=== PATIENT | female | born 1975 | race Caucasian/White ===

== ENCOUNTER → 2019-07-27 | Outpatient (CLI) | payer BC ==
[2015-12-12 20:17] VITALS: BP 132/86
[~2019-07-27] MED LIST: PRED50TA PO
--- NOTE | 2019-07-27 08:17 | RAD ---
EXAM: Obstetrics sonogram. HISTORY: Advanced maternal age. TECHNIQUE: Sonographic imaging of a gravid uterus was performed. COMPARISON: None. FINDINGS: The uterus measures 13.4 x 7.7 x 5.7 cm. There is a single intrauterine gestational sac with pole and yolk sac. The crown-rump length is 2.4 cm, corresponding with a gestational age of 9 weeks and 1 day. The heart rate is normal at 175 bpm. The gestational sac is normal in configuration and location. The ovaries are unremarkable. The cervix is long and closed. IMPRESSION: Single intrauterine fetus with normal heart rate and an estimated gestational age of 9 weeks and 1 day. Electronically signed by: Meghan Burroughs MD (07/27/2019 8:14 AM) [id number]
== END | disposition home or self-care (01) ==
LOC: US 06:57
PROVIDERS: ATTEND Obstetrics & Gynecology
DX: Z34.91 Encounter for supervision of normal pregnancy, unspecified, first trimester (principal); Z3A.09 9 weeks gestation of pregnancy
CPT/HCPCS: 76801

== ENCOUNTER → 2019-11-08 | Outpatient (CLI) | payer BC ==
[2015-12-12 20:17] VITALS: BP 132/86
--- NOTE | 2019-11-08 16:59 | RAD ---
Examination: PREG MORE THAN OR EQ TO 14 WKS History: Reason: Encounter for Second Trimester / Spl. Instructions: / History: Comparison/Correlation: 07/27/2019 1st trimester OB ultrasound Findings: OB ultrasound exam was performed. Single living intrauterine gestation is present with heart rate of 135 bpm. Placenta is at the anterior uterine wall. No evidence of previa. anatomy identified include a four-chamber heart, three-vessel cord and its insertion, fluid noted in the uterine bladder, stomach, kidneys, spine, brain are visualized. Cephalic lie noted. Maternal cervical length of 5.4 cm evident. Amniotic fluid index is 12.6. Biparietal diameter is 5.3 cm corresponding to 23 weeks 1 day. Head circumference 21.12 cm corresponding to 23 weeks 1 day. Abdominal circumference is 19.3 cm corresponding to 24 weeks 0 day. Femur length 4.34 cm corresponding 24 weeks 2 days. Estimated weight is 648 g. Average ultrasound age is 23 weeks 5 days. Ultrasound EDC is 02/27/2020. Impression: Single living intrauterine gestation with average ultrasound age of 23 weeks 5 days. Adequate interval growth is noted since prior exam. No suspicious findings. Electronically signed by: Aristides Jordan MD (11/08/2019 4:55 PM) [id number]
== END | disposition home or self-care (01) ==
LOC: US 13:55
PROVIDERS: ATTEND Obstetrics & Gynecology
DX: Z34.92 Encounter for supervision of normal pregnancy, unspecified, second trimester (principal); Z3A.23 23 weeks gestation of pregnancy
CPT/HCPCS: 76805

== ENCOUNTER → 2019-11-24 | Outpatient (CLI) | payer BC ==
[2015-12-12 20:17] VITALS: BP 132/86
[2019-11-24 12:03] LABS: HEMATOCRIT 33.2 % (36.0-47.0); HEMOGLOBIN 11.7 g/dL (12.0-15.5); RED BLOOD COUNT 3.8 x10^6/uL (3.50-5.40); RED CELL DISTRIBUTION WIDTH 13.9 % (11.5-14.5); WHITE BLOOD COUNT 8.6 x10^3/uL (4.0-11.0)
== END | disposition home or self-care (01) ==
LOC: LAB 10:00
PROVIDERS: ATTEND Obstetrics & Gynecology
DX: O09.93 Supervision of high risk pregnancy, unspecified, third trimester (principal); Z3A.00 Weeks of gestation of pregnancy not specified
CPT/HCPCS: 36415; 82950; 85027

== ENCOUNTER → 2019-12-01 | Outpatient (CLI) | payer BC ==
[2015-12-12 20:17] VITALS: BP 132/86
== END | disposition home or self-care (01) ==
LOC: LAB 07:53
PROVIDERS: ATTEND Obstetrics & Gynecology
DX: Z34.93 Encounter for supervision of normal pregnancy, unspecified, third trimester (principal)
CPT/HCPCS: 36415; 82947; 82950

== ENCOUNTER → 2020-02-20 | Outpatient (CLI) | payer BC ==
[2015-12-12 20:17] VITALS: BP 132/86
[~2020-02-20] MED LIST changes: +DOCU-109 PO; +IBUP-1060 PO
== END ==
LOC: LAB 11:59
PROVIDERS: ATTEND Obstetrics & Gynecology
DX: Z01.812 Encounter for preprocedural laboratory examination (principal); Z20.828 Contact with and (suspected) exposure to other viral communicable diseases
CPT/HCPCS: U0003-CS

== ENCOUNTER 2020-02-23 05:59 | Inpatient (IN) | payer BC ==
[~2020-02-23] VITALS: Ht 170.2 cm; Wt 95.3 kg
[~2020-02-23 05:59] MED LIST changes: -DOCU-109 PO; -IBUP-1060 PO
[2020-02-23] MEDS ORDERED: TERBUTALINE 1 MG/ML VIAL. SQ PRN (06:15)
[2020-02-23] MEDS ORDERED: OXYTOCIN 30 UNIT/500 ML PREMIX 500 ML IV PRN ×3 (06:15→18:00)
[2020-02-23] MEDS ORDERED: 0.9 % SODIUM CHLORIDE 10 ML DISP.SYRIN. IV PRN ×2 (06:15→18:00)
[2020-02-23] MEDS ORDERED: LIDOCAINE 1% PF 30 ML VIAL. INJ PRN (06:15)
[2020-02-23] MEDS ORDERED: BUTORPHANOL 2 MG/ML VIAL. IVP PRN ×2 (06:15)
[2020-02-23 06:33] VITALS: BP 141/77
[2020-02-23] MEDS: IV RINGERS,LACTATED 1000ML 1,000 ML IV SCH ×2 (06:52→15:29)
[2020-02-23 06:56] LABS: BASO # 0.1 x10^3/uL (0.0-0.2); BASO % 1 % (0-3); EOS # 0.1 x10^3/uL (0.0-0.7); EOS % 1 % (0-3); HEMATOCRIT 33.4 % (36.0-47.0); HEMOGLOBIN 11.5 g/dL (12.0-15.5); LYMPH # 1.6 x10^3/uL (1.0-4.8); LYMPH % 20 % (24-48); MEAN CORPUSCULAR HEMOGLOBIN 28 pg (25-35); MEAN CORPUSCULAR HGB CONC 34 g/dL (31-37); MEAN CORPUSCULAR VOLUME 82 fL (79-100); MONO # 0.7 x10^3/uL (0.0-1.1); MONO % 9 % (0-9); NEUT # 5.7 x10^3/uL (1.8-7.7); NEUT % 70 % (31-73); PLATELET COUNT 243 x10^3/uL (140-400); RED BLOOD COUNT 4.06 x10^6/uL (3.50-5.40); RED CELL DISTRIBUTION WIDTH 14.1 % (11.5-14.5); WHITE BLOOD COUNT 8.1 x10^3/uL (4.0-11.0)
--- NOTE | 2020-02-23 09:53 | PDOC1 ---
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 The pt was placed on the indxn scheduled at 39wks due to her AMA status (>42yo). The pt has had few ctxs to this point. Her last delivery was ~7yrsw ago. The pt has had few issues throughout the . The pt first discovered she was when she was being dxed with pneumonia and txed with abx and steroids. The pts asthma has been well controlled on Pulmicort. She rarely needs her rescue inhaler. PMH: Asthma, h/o pneumonia, hyperlipiidemia PSH: Lap Appy Meds: cetirizine, ProAir HFA, Pulmicort All: NKDA OBHx: TSVD x 3 SH: no tob, no EtOH FH: DM Medications: Meds: Current Medications Medications (Trade) Dose Ordered Sig/Tracie Route PRN Reason Start Time Stop Time Status Last Admin Dose Admin Ringer's Solution 1,000 ml @ 125 mls/hr Q8H IV 02/23/20 06:04 02/23/20 06:52 Oxytocin/Sodium Chloride 500 ml @ 0 mls/hr CONT PRN IV SEE I/O RECORD 02/23/20 06:15 02/23/20 07:21 Allergies: Coded Allergies: No Known Drug Allergies (Unverified , 12/12/15) Physical Exam: Vital Signs: Vital Signs Date Time Temp Pulse Resp B/P (MAP) Pulse Ox O2 Delivery O2 Flow Rate FiO2 02/23/20 06:33 97.5 89 18 141/77 (98) 100 Room Air 97.5 PE: GENERAL: No apparent distress. Alert and oriented. HEENT: Head normocephalic, atraumatic. NECK: Supple LUNGS: Clear to auscultation. HEART: RRR, S1, S2 present, pulses intact ABDOMEN: Soft, positive bowel sounds. EXTREMITIES: No cyanosis or edema. NEUROLOGIC: Normal speech, normal tone PSYCHIATRIC: Normal affect, normal mood. SKIN: No ulceration. FHT: 120's +acels/no decls/mLTV [place]: 2-3 min SVE: 3 Labs: Laboratory Tests Test 02/23/20 06:35 White Blood Count 8.1 x10^3/uL (4.0-11.0) Red Blood Count 4.06 x10^6/uL (3.50-5.40) Hemoglobin 11.5 g/dL (12.0-15.5) L Hematocrit 33.4 % (36.0-47.0) L Mean Corpuscular Volume 82 fL (79-100) Mean Corpuscular Hemoglobin 28 pg (25-35) Mean Corpuscular Hemoglobin Concent 34 g/dL (31-37) Red Cell Distribution Width 14.1 % (11.5-14.5) Platelet Count 243 x10^3/uL (140-400) Neutrophils (%) (Auto) 70 % (31-73) Lymphocytes (%) (Auto) 20 % (24-48) L Monocytes (%) (Auto) 9 % (0-9) Eosinophils (%) (Auto) 1 % (0-3) Basophils (%) (Auto) 1 % (0-3) Neutrophils # (Auto) 5.7 x10^3/uL (1.8-7.7) Lymphocytes # (Auto) 1.6 x10^3/uL (1.0-4.8) Monocytes # (Auto) 0.7 x10^3/uL (0.0-1.1) Eosinophils # (Auto) 0.1 x10^3/uL (0.0-0.7) Basophils # (Auto) 0.1 x10^3/uL (0.0-0.2) Laboratory Tests 02/23/20 06:35 Laboratory Tests 02/23/20 06:35 Assessment & Plan: A/P 45y @ 39.2 by L=9 1.) Indxn for AMA, on Pit 2.) AMA - [place]orama low risk 3.) Recent pneumonia 4.) Steroid exposure - only a few days 5.) Asthma - well controlled, on Pulmicort and Albuterol prn 6.) Elevated GTT - one of 3hr GTT values elevated 7.) s/p Flu vaccine in Jan 8.) TDAP given 12/18/19 9.) Girl - Divya 10.) Contraception - considering Nexplanon 11.) Fetus cat I FHT 12.) GBS neg SUE LANGE MD Feb 23, 2020 09:53
[2020-02-23] MEDS ORDERED: ACETAMINOPHEN 500 MG TABLET PO ONE (10:45)
[2020-02-23] MEDS: ACETAMINOPHEN 325 MG TABLET. PO PRN (11:09)
--- NOTE | 2020-02-23 15:18 | PDOC ---
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 Date of Service: DATE: 02/23/20 TIME: 15:17 Subjective: Pt feeling ctx's Objective: Vital Signs: Vital Signs Date Time Temp Pulse Resp B/P (MAP) Pulse Ox O2 Delivery O2 Flow Rate FiO2 02/23/20 06:33 97.5 89 18 141/77 (98) 100 Room Air 97.5 Vital Signs Date Time Temp Pulse Resp B/P (MAP) Pulse Ox O2 Delivery O2 Flow Rate FiO2 02/23/20 06:33 97.5 89 18 141/77 (98) 100 Room Air 97.5 Labs: Laboratory Tests Test 02/23/20 06:35 White Blood Count 8.1 x10^3/uL (4.0-11.0) Red Blood Count 4.06 x10^6/uL (3.50-5.40) Hemoglobin 11.5 g/dL (12.0-15.5) L Hematocrit 33.4 % (36.0-47.0) L Mean Corpuscular Volume 82 fL (79-100) Mean Corpuscular Hemoglobin 28 pg (25-35) Mean Corpuscular Hemoglobin Concent 34 g/dL (31-37) Red Cell Distribution Width 14.1 % (11.5-14.5) Platelet Count 243 x10^3/uL (140-400) Neutrophils (%) (Auto) 70 % (31-73) Lymphocytes (%) (Auto) 20 % (24-48) L Monocytes (%) (Auto) 9 % (0-9) Eosinophils (%) (Auto) 1 % (0-3) Basophils (%) (Auto) 1 % (0-3) Neutrophils # (Auto) 5.7 x10^3/uL (1.8-7.7) Lymphocytes # (Auto) 1.6 x10^3/uL (1.0-4.8) Monocytes # (Auto) 0.7 x10^3/uL (0.0-1.1) Eosinophils # (Auto) 0.1 x10^3/uL (0.0-0.7) Basophils # (Auto) 0.1 x10^3/uL (0.0-0.2) Treponema pallidum Antibody Nonreactive (Nonreactive) Laboratory Tests 02/23/20 06:35 Laboratory Tests 02/23/20 06:35 Physical Exam: GENERAL: No apparent distress. Alert and oriented. HEENT: Head normocephalic, atraumatic. NECK: Supple LUNGS: Clear to auscultation. HEART: RRR, S1, S2 present, pulses intact ABDOMEN: Soft, positive bowel sounds. EXTREMITIES: No cyanosis or edema. NEUROLOGIC: Normal speech, normal tone PSYCHIATRIC: Normal affect, normal mood. SKIN: No ulceration. FHT: 120's +acels/no decels/mLTV [place]: 1-2 min SVE: 2/50/-3 Assessment & Plan: A/P 45y @ 39.2 by L=9 1.) Indxn for AMA, on Pit, AROM/cl (1500) 2.) AMA - [place] low risk 3.) Recent pneumonia 4.) Steroid exposure - only a few days 5.) Asthma - well controlled, on Pulmicort and Albuterol prn 6.) Elevated GTT - one of 3hr GTT values elevated 7.) s/p Flu vaccine in Jan 15.) TDAP given 12/18/19 9.) Girl - Divya 10.) Contraception - considering Nexplanon 11.) Fetus cat I FHT 12.) GBS neg SUE LANGE MD Feb 23, 2020 15:18
[2020-02-23] MEDS ORDERED: fentaNYL PF VIAL 100 MCG/2 ML VIAL ONE (16:12)
[2020-02-23] MEDS ORDERED: ROPIVacaine 0.2% PF 10 ML VIAL. ONE ×2 (16:12→17:00)
[2020-02-23] MEDS ORDERED: L&D EPIDURAL SYRINGE 50 ML ONE (16:13)
[2020-02-23] MEDS ORDERED: IV RINGERS,LACTATED 1000ML 1,000 ML IV ONE (16:39)
[2020-02-23] MEDS ORDERED: fentaNYL PF VIAL 100 MCG/2 ML VIAL IM ONE (16:45)
[2020-02-23] MEDS ORDERED: ePHEDrine PF IN SALINE 50 MG/10 ML SYRINGE. IV PRN (16:45)
[2020-02-23] MEDS ORDERED: NALOXONE 0.4 MG/ML VIAL. IV PRN (16:45)
[2020-02-23] MEDS ORDERED: L&D EPIDURAL SYRINGE 50 ML EPID PRN (16:45)
[2020-02-23] MEDS ORDERED: ONDANSETRON PF 4 MG/2 ML VIAL. IV PRN (16:45)
[2020-02-23] MEDS ORDERED: L&D EPIDURAL 50 ML SYRINGE. ONE (17:00)
--- NOTE | 2020-02-23 17:46 | PDOC ---
VAGINAL DELIVERY DATE DATE: 02/23/20 TIME: 17:46 TIME Patient delivered a viable female over intact perineum at 1716. Wt 6lb 9oz. Apgars 8/9. Placenta delivered spontaneously, intact with 3VC. No lacerations noted. Good hemostasis noted. 20 U of Pit given with IVF. EBL 200cc. WEIGHT Weight [ ] SUE LANGE MD Feb 23, 2020 17:46
[2020-02-23] MEDS ORDERED: oxyCODONE/APAP 5/325 1 TAB TABLET PO PRN (18:00)
[2020-02-23] MEDS ORDERED: PHENYLEPH/MINERAL OIL/PETROLAT RECTAL OINTMENT TUBE. RC PRN (18:00)
[2020-02-23] MEDS ORDERED: BENZOCAINE 20% TOPICAL AEROSOL SPRAY 57GM CAN. TP PRN (18:00)
[2020-02-23] MEDS ORDERED: SIMETHICONE 80 MG TAB.CHEW PO PRN (18:00)
[2020-02-23] MEDS ORDERED: MAGNESIUM HYDROXIDE 2,400 MG/30 ML ORAL.SUSP. PO PRN (18:00)
[2020-02-23] MEDS ORDERED: ZOLPIDEM 5 MG TABLET. PO PRN (18:00)
[2020-02-23] MEDS ORDERED: DOCUSATE SODIUM 100 MG CAPSULE. PO PRN (18:00)
[2020-02-23] MEDS ORDERED: HYDROCORTISONE 1% TOPICAL OINTMENT 30GM TUBE. TP PRN (18:00)
[2020-02-23] MEDS ORDERED: ACETAMINOPHEN 325 MG TABLET. PO PRN (18:00)
[2020-02-23] MEDS ORDERED: MAG HYDROX/ALUMINUM HYD/SIMETH 30 ML ORAL.SUSP PO PRN (18:00)
[2020-02-23] MEDS ORDERED: diphenhydrAMINE HCL 25 MG CAPSULE PO PRN (18:00)
[2020-02-23] MEDS ORDERED: MMR per PROTOCOL. MC PRN (18:00)
[2020-02-23] MEDS ORDERED: TDaP (Adacel) per PROTOCOL. MC PRN (18:00)
[2020-02-23] MEDS: IBUPROFEN 400 MG TABLET. PO PRN (18:40)
[2020-02-23] MEDS ORDERED: IV NORMAL SALINE 1000ML BAG 1,000 ML IV SCH (19:16)
[2020-02-23 20:00] VITALS: BP 117/51
[2020-02-23 21:00] VITALS: BP 125/70
[2020-02-24 00:25] VITALS: BP 125/57
[2020-02-24] MEDS: IBUPROFEN 400 MG TABLET. PO PRN ×2 (03:44→17:27)
[2020-02-24 03:45] VITALS: BP 135/74
[2020-02-24 06:54] LABS: HEMATOCRIT 31.8 % (36.0-47.0); HEMOGLOBIN 10.6 g/dL (12.0-15.5); RED BLOOD COUNT 3.79 x10^6/uL (3.50-5.40); RED CELL DISTRIBUTION WIDTH 14.2 % (11.5-14.5); WHITE BLOOD COUNT 10.6 x10^3/uL (4.0-11.0)
[2020-02-24] MEDS ORDERED: FERROUS SULFATE 325 MG TABLET. PO SCH (08:00)
[2020-02-24] MEDS: PRENATAL MULTIVITAMIN TABLET. PO SCH (08:53)
[2020-02-24 11:25] VITALS: BP 123/65
--- NOTE | 2020-02-24 11:35 | PDOC ---
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 [place] PO. Voiding. Minimal lochia Objective: Vital Signs: Vital Signs Date Time Temp Pulse Resp B/P (MAP) Pulse Ox O2 Delivery O2 Flow Rate FiO2 02/23/20 20:00 98.3 87 16 117/51 (73) 97 Room Air 98.3 Vital Signs Date Time Temp Pulse Resp B/P (MAP) Pulse Ox O2 Delivery O2 Flow Rate FiO2 02/24/20 07:56 18 Room Air 02/24/20 03:45 97.8 66 135/74 (94) 98 97.8 Labs: Laboratory Tests Test 02/24/20 06:15 White Blood Count 10.6 x10^3/uL (4.0-11.0) Red Blood Count 3.79 x10^6/uL (3.50-5.40) Hemoglobin 10.6 g/dL (12.0-15.5) L Hematocrit 31.8 % (36.0-47.0) L Mean Corpuscular Volume 84 fL (79-100) Mean Corpuscular Hemoglobin 28 pg (25-35) Mean Corpuscular Hemoglobin Concent 33 g/dL (31-37) Red Cell Distribution Width 14.2 % (11.5-14.5) Platelet Count 199 x10^3/uL (140-400) Laboratory Tests 02/24/20 06:15 Laboratory Tests 02/24/20 06:15 Physical Exam: GENERAL: No apparent distress. Alert and oriented. HEENT: Head normocephalic, atraumatic. NECK: Supple LUNGS: Clear to auscultation. HEART: RRR, S1, S2 present, pulses intact ABDOMEN: Soft, positive bowel sounds. EXTREMITIES: No cyanosis or edema. NEUROLOGIC: Normal speech, normal tone PSYCHIATRIC: Normal affect, normal mood. SKIN: No ulceration. FFNT below umb No C/C/E Assessment & Plan: A/P 45y PPD #1 s/p 1.) PP doing well 2.) Recent pneumonia 3.) Asthma - well controlled, on Pulmicort and Albuterol prn 4.) s/p Flu vaccine in Jan 5.) TDAP given 12/18/19 6.) Hgb11.5 -> 10.6 7.) Cont PP care SUE LANGE MD Feb 24, 2020 11:35
[2020-02-24 16:18] VITALS: BP 137/63
[2020-02-24 20:00] VITALS: BP 129/72
[2020-02-25] VITALS: BP 132/82
[2020-02-25] MEDS: IBUPROFEN 400 MG TABLET. PO PRN ×2 (00:16→12:45)
[2020-02-25 06:00] VITALS: BP 123/78
[2020-02-25] MEDS: ACETAMINOPHEN 325 MG TABLET. PO PRN (07:29)
--- NOTE | 2020-02-25 08:50 | PDOC ---
P D DRIVER PROGRESS NOTE Date of Service: DATE: 02/25/20 TIME: 08:49 Subjective: Pt with good pain control. [place] PO. Voiding. Minimal lochia Objective: Vital Signs: Vital Signs Date Time Temp Pulse Resp B/P (MAP) Pulse Ox O2 Delivery O2 Flow Rate FiO2 02/24/20 07:56 18 Room Air 02/24/20 11:25 98.5 66 123/65 (84) 99 98.5 Vital Signs Date Time Temp Pulse Resp B/P (MAP) Pulse Ox O2 Delivery O2 Flow Rate FiO2 02/25/20 06:00 98.3 58 18 123/78 (93) 96 Room Air 98.3 Physical Exam: GENERAL: No apparent distress. Alert and oriented. HEENT: Head normocephalic, atraumatic. NECK: Supple LUNGS: Clear to auscultation. HEART: RRR, S1, S2 present, pulses intact ABDOMEN: Soft, positive bowel sounds. EXTREMITIES: No cyanosis or edema. NEUROLOGIC: Normal speech, normal tone PSYCHIATRIC: Normal affect, normal mood. SKIN: No ulceration. FFNT below umb no C/C/E Assessment & Plan: A/P 45y PPD #2 s/p 1.) PP doing well 2.) Recent pneumonia 3.) Asthma - well controlled, on Pulmicort and Albuterol prn 4.) s/p Flu vaccine in Jan 5.) TDAP given 12/18/19 6.) Hgb11.5 -> 10.6 7.) D/c home SUE LANGE MD Feb 25, 2020 08:49
[2020-02-25] MEDS ORDERED: IBUP-1060 PO (08:54)
[2020-02-25] MEDS ORDERED: DOCU-109 PO (08:54)
[2020-02-25] MEDS: PRENATAL MULTIVITAMIN TABLET. PO SCH (09:06)
--- NOTE | 2020-02-25 09:07 | DS ---
DATE OF DISCHARGE: 02/25/2020 ADMISSION DIAGNOSES: 1. Intrauterine at 39 weeks and 2 days by last menstrual period equal to a 9-week ultrasound. 2. Induction of labor. 3. Advanced maternal age. 4. History of pneumonia during . 5. Exposure to steroids. 6. Asthma. 7. Elevated 1-hour glucose tolerance test with normal 3-hour glucose tolerance test. 8. Group B strep negative. DISCHARGE DIAGNOSES: 1. Intrauterine at 39 weeks and 2 days by last menstrual period equal to a 9-week ultrasound. 2. Induction of labor. 3. Advanced maternal age. 4. History of pneumonia during . 5. Exposure to steroids. 6. Asthma. 7. Elevated 1-hour glucose tolerance test with normal 3-hour glucose tolerance test. 8. Group B strep negative. PROCEDURE: Spontaneous vaginal delivery. BRIEF HOSPITAL COURSE: The patient is a 45-year-old 4, para 3-0-0-3, who presented to Labor and Delivery at 39 weeks and 2 days by LMP equal to a 9-week ultrasound for induction of labor. The patient was placed on induction due to her advanced maternal age status greater than 40 years old. The patient had had a few contractions at that point. The patient was subsequently started on Pitocin. The patient ultimately delivered by vaginal delivery, see delivery note for full detail. By day #2, the patient was meeting all discharge criteria and was subsequently discharged home. Of note, the patient had hemoglobin of 11.5 on admission and 10.6 on discharge. DISCHARGE INSTRUCTIONS: The patient was told not to lift anything greater than 20 pounds, have pelvic rest for 6 weeks. The patient was to call if she had fevers, chills, nausea, vomiting, abdominal pain or any additional questions or concerns. FOLLOWUP APPOINTMENT: The patient is to follow up in 6 weeks for appointment. DISCHARGE MEDICATIONS: The patient was given a prescription for Motrin 800 mg 30 pills and Colace 100 mg 30 pills. SUE LANGE MD DR: MARIANA/josette JOB#: [id number] / [id number]
[2020-02-25 12:35] VITALS: BP 131/71
--- NOTE | 2020-02-25 12:35 | NUR ---
Discharge instructions given to pt. Pt verbalized understanding. Pt discharged home.
== END 2020-02-25 13:10 | disposition home or self-care (01) | DRG 807 ==
LOC: 3 SO LND 05:59 → 3 NORTH 20:00
PROVIDERS: ADMIT Obstetrics & Gynecology; ATTEND Obstetrics & Gynecology
PROC: 10E0XZZ Delivery of Products of Conception, External Approach (ICD-10-PCS; principal; 2020-02-23)
PROC: 3E033VJ Introduction of Other Hormone into Peripheral Vein, Percutaneous Approach (ICD-10-PCS; 2020-02-23)
DX: O99.52 Diseases of the respiratory system complicating childbirth (principal); Z37.0 Single live birth; J45.909 Unspecified asthma, uncomplicated; Z3A.39 39 weeks gestation of pregnancy; Z87.01 Personal history of pneumonia (recurrent); Z83.3 Family history of diabetes mellitus
CPT/HCPCS: 36415; 85025; 85027; 86592; 86850; 86900; 86901; J0595; J2590; J2795; J3010; J7120; G0378

== ENCOUNTER → 2020-05-07 | Outpatient (CLI) | payer BC ==
[~2020-05-07] MED LIST changes: +DOCU-109 PO; +IBUP-1060 PO
--- NOTE | 2020-05-08 12:06 | RAD ---
DATE: 05/07/2020 8:18 AM EXAM: MAMMO JAMAL SCREENING BILATERAL HISTORY: Screening COMPARISON: None. This is a baseline Bilateral CC and MLO views of the breasts were performed. Bilateral breast tomosynthesis was performed in CC and MLO projections. This study was interpreted with the benefit of Computerized Aided Detection (CAD). FINDINGS: Breast Density: SCATTERED The breast parenchyma shows scattered fibroglandular densities. Breast parenchyma level B No suspicious masses, microcalcifications or architectural distortion is present to suggest malignancy in either breast. The visualized axillae are unremarkable. IMPRESSION: No mammographic evidence of malignancy. BI-RADS CATEGORY: 1 NEGATIVE RECOMMENDED FOLLOW-UP: 12M 12 MONTH FOLLOW-UP Annual screening mammography is recommended, unless clinically indicated sooner based on symptoms or change in physical exam. PQRS compliance statement: Patient information was entered into a reminder system with a target due date for the next mammogram. Mammography is a sensitive method for finding small breast cancers, but it does not detect them all and is not a substitute for careful clinical examination. A negative mammogram does not negate a clinically suspicious finding and should not result in delay in biopsying a clinically suspicious abnormality. "Our facility is accredited by the [employer] Mammography Program."
== END ==
LOC: MAMMO 08:17
PROVIDERS: ATTEND Obstetrics & Gynecology
DX: Z12.31 Encounter for screening mammogram for malignant neoplasm of breast (principal)
CPT/HCPCS: 77063; 77067